=== PATIENT | male | born 1960 | race Hispanic/Latino ===

== ENCOUNTER → 2024-08-24 | Outpatient (CLI) | payer OTHER ==
[~2024-08-24] MED LIST: REGADENOSON 0.4 MG/5 ML PF SYG IVP ONE
--- NOTE | 2024-08-25 00:24 | HMCSR ---
APPROVED REPORT Height: 5 ft 8in Weight: 193 lbs TEST INDICATIONS OTHER FORMS OF DYSPNEA The imaging protocol used to acquire images was Rest Tc-99m/stress Tc-99m 1 day Consent: The procedure was explained and understood by the patient. Informerd consent was witnessed Padmini Spencer RN First, low dose rest was performed then high dose stress. RESTING DATA: The resting ekg shows: NSR Rest SPECT myocardial perfusion imaging was performed in supine position minutes following the intra venous injection of 10 mCi of Tc-99 Sestamibi. Time of rest injection: 09:25: PHARMACOLOGIC STRESS: Pharmacologic stress test was performed by injecting regadenoson 0.4 mg IV push followed by the intra venous injection of 28 mCi of Tc-99 Sestamibi. Time of stress injection: 11:04: Heart Rate at time of stress injection: 54 bpm. Gated Stress SPECT was performed 60 minutes after stress injection. The images were gated to evaluate regional wall motion and calculate left ventricular ejection fracti on. STRESS DETAILS Reason for Termination: Infusion complete Stress Symptoms: Dyspnea Max HR Achieved: 80 bpm % of APMHR Achieved: 60 Max Blood Pressure: 141/63 mmHg Stress ECG: NSR Arrhythmia: No. ST Change: No. Study quality was fair. Artifact: diaphragmatic artifact, motion artifact, LEFT VENTRICLE Size: The left ventricular size is normal. Systolic Function:The left ventricular systolic function is normal. Wall Motion: The anterior septal wall is hypokinetic. The other hernandez are grossly normal in functio n. The left ventricular ejection fraction was calculated to be 75%.TID = . LV PERFUSION There is a small size, mild intensity, fully reversible perfusion defect seen in the apical anterior septal wall. No obvious TID. IMPRESSION Stress ECG Summary: Nondiagnostic Conclusion Abnormal Lexiscan stress test. There is a small size, mild intensity, fully reversible perfusion defect seen in the apical anterior septal wall. No obvious TID. The left ventricular size is normal. The anterior septal wall is hypokinetic. The other hernandez are gr ossly normal in function. Post-stress LVEF was calculated to be 75%. Stress ECG Summary: Nondiagnostic Study indicates a moderate risk for cardiovascular events.
== END | disposition home or self-care (01) ==
LOC: RAH 08:49
PROVIDERS: ATTEND Internal Medicine Cardiovascular Disease
DX: R94.39 Abnormal result of other cardiovascular function study (principal); R06.09 Other forms of dyspnea
CPT/HCPCS: 78452; 93017; J2785; A9500 ×2

== ENCOUNTER → 2024-11-12 | Outpatient (CLI) | payer OTHER ==
--- NOTE | 2024-11-12 12:39 | HMCIMG ---
EXAM: MR Left Knee WITHOUT CONTRAST CLINICAL HISTORY: 64-year-old male with pain in the left knee. TECHNIQUE: Multiplanar multisequence magnetic resonance images were obtained WITHOUT contrast. CONTRAST: None COMPARISON: None FINDINGS: JOINTS: Unremarkable. No dislocation or significant effusion. BONE: No acute fracture or focal osseous lesion. SOFT TISSUES: The soft tissues are unremarkable. MENISCI: There is a longitudinal tear of the posterior horn of the medial meniscus with a horizontal component of the body. IMPRESSION: 1. Longitudinal tear of the posterior horn of the medial meniscus with a horizontal component of the body. /[place]
== END | disposition home or self-care (01) ==
LOC: RAH 10:22
PROVIDERS: ATTEND Orthopaedic Surgery
DX: S83.242A Other tear of medial meniscus, current injury, left knee, initial encounter (principal); M25.562 Pain in left knee; X58.XXXA Exposure to other specified factors, initial encounter; Y93.89 Activity, other specified; Y92.89 Other specified places as the place of occurrence of the external cause; Y99.8 Other external cause status
CPT/HCPCS: 73721

== ENCOUNTER → 2024-12-03 | Outpatient (CLI) | payer OTHER ==
--- NOTE | 2024-12-03 19:38 | HMCIMG ---
EXAM: CT Maxillofacial Without IV contrast. CLINICAL HISTORY: OTHER CHRONIC SINUSITIS TECHNIQUE: Axial computed tomography images of the face without intravenous contrast. Sagittal and coronal reformatted images were generated. CONTRAST: None. COMPARISON: None provided. FINDINGS: FACIAL BONES/ORBITS: No acute fracture or aggressive appearing osseous lesion. The mandible is intact. The orbits are normal. No retrobulbar hematoma or mass. The paranasal sinuses appear clear. SOFT TISSUES: The soft tissues are unremarkable. No radiopaque foreign body or focal fluid collection seen. IMPRESSION: No acute facial bone fracture evident. /[place]
== END | disposition home or self-care (01) ==
LOC: RAH 14:48
PROVIDERS: ATTEND Otolaryngology
DX: J32.8 Other chronic sinusitis (principal)
CPT/HCPCS: 70486

== ENCOUNTER → 2025-02-07 | Outpatient (CLI) | payer OTHER ==
--- NOTE | 2025-02-08 06:22 | HMCIMG ---
EXAMINATION: NONCONTRAST MR EXAMINATION OF THE RIGHT KNEE. CLINICAL HISTORY: Pain. COMPARISON: None provided. TECHNIQUE:Multiplanar, multisequence MR imaging of the right knee. FINDINGS: In the medial compartment, there is subtle oblique tear of the posterior horn of the medial meniscus. There is no focal chondrosis or subchondral bone marrow edema. In the lateral compartment, the meniscus is intact. There is no focal chondrosis or subchondral bone marrow edema. In the patellofemoral compartment, there is no focal chondrosis or subchondral bone marrow edema. There is mild anterior cruciate ligament mucoid degeneration. The posterior cruciate ligament is intact. Iliotibial band, fibular collateral ligament, biceps femoris tendon, conjoined tendon, and popliteus tendon are intact. The medial collateral ligament is intact. The extensor mechanism and patellar retinaculum are intact. There is no knee joint effusion. There is no bone marrow signal abnormality seen to suggest fracture, avascular necrosis, or osteomyelitis. The musculature surrounding the knee demonstrate normal bulk and signal. IMPRESSION: 1. Subtle oblique tear of the posterior horn of the medial meniscus. 2. Mild anterior cruciate ligament mucoid degeneration. /[place]
== END | disposition home or self-care (01) ==
LOC: RAH 13:52
PROVIDERS: ATTEND Orthopaedic Surgery
DX: S83.241A Other tear of medial meniscus, current injury, right knee, initial encounter (principal); M23.91 Unspecified internal derangement of right knee; X58.XXXA Exposure to other specified factors, initial encounter; Y93.89 Activity, other specified; Y92.89 Other specified places as the place of occurrence of the external cause; Y99.8 Other external cause status
CPT/HCPCS: 73721